=== PATIENT | male | born 1945 | race Caucasian/White ===

== ENCOUNTER 2017-01-10 07:38 | Day surgery (SDC) | payer OTHER, MEDICARE ==
[2017-01-08 14:21] VITALS: BMI 30.1
[2017-01-10] MEDS ORDERED: PROPOFOL 20 ML ONE ×2 (07:56)
[2017-01-10 09:52] VITALS: TEMP 98.1
[2017-01-10 10:16] VITALS: BP 140/68; PULSE 65
--- NOTE | 2017-01-11 10:09 | PATH ---
Surgical Pathology Report Patient Name: QIAN DEAN [facility]. Rec. #: [id number] /Age/Gender: 1945 (Age: 71) / M Account: [id number] Location: [facility]-ENDOSCOPY Taken: 01/10/2017 Received: 01/10/2017 Reported: 01/11/2017 Physicians: Dong Zaragoza M.D. Specimen(s) Received A: BX HEPATIC FLEXURE B: POLYP TRANSVERSE COLON Clinical History History of colon cancer Diverticulosis, flat polypoid lesion near anastomosis, polyps, status post right hemicolectomy Final Diagnosis A. COLON, HEPATIC FLEXURE, BIOPSY: TUBULOVILLOUS ADENOMA. NO HIGH-GRADE DYSPLASIA OR CARCINOMA IDENTIFIED. B. COLON, TRANSVERSE, BIOPSY: TUBULAR ADENOMA. NO HIGH GRADE DYSPLASIA OR CARCINOMA IDENTIFIED. Comment: Recommend correlation with clinical findings and followup as clinically indicated. Also see [id number]. Electronically Signed Song Mclaughlin M.D. Gross Description A. Received in formalin, labeled "hepatic flexure" are 3 kennedy, irregular portions of soft tissue averaging 0.5 cm. in greatest dimension. The specimens are submitted in toto in one cassette. B. Received in formalin, labeled "polyp transverse colon" are 2 kennedy, irregular portions of soft tissue measuring 0.2 and 0.6 cm. in greatest dimension. The specimens are submitted in toto in one cassette. 01/10/201701/10/2017
== END 2017-01-10 10:20 | disposition home or self-care (01) ==
LOC: FASU-ENDO 07:38
PROVIDERS: ATTEND Internal Medicine Gastroenterology
PROC: 0DBL8ZX Excision of Transverse Colon, Via Natural or Artificial Opening Endoscopic, Diagnostic (ICD-10-PCS; principal; 2017-01-10 09:08)
DX: Z85.038 Personal history of other malignant neoplasm of large intestine (principal); Z86.010 Personal history of colon polyps; Z98.0 Intestinal bypass and anastomosis status; K57.30 Diverticulosis of large intestine without perforation or abscess without bleeding; D12.3 Benign neoplasm of transverse colon
CPT/HCPCS: 88305-TC